=== PATIENT | female | born 1950 | race Caucasian/White ===

== ENCOUNTER 2018-02-09 12:24 | Day surgery (SDC) | payer OTHER ==
[2018-02-09] MEDS ORDERED: NA CHLORIDE 0.9% 500 ML ONE (13:05)
[2018-02-09] MEDS ORDERED: BUPIVACAINE 0.25% PF 10 ML VIAL ONE (13:14)
[2018-02-09] MEDS ORDERED: LIDOCAINE 2% MPF 5 ML VIAL ONE (13:14)
[2018-02-09] MEDS ORDERED: CEFAZOLIN/SWI 1gm 1 GM/10 ML SYR ONE (13:15)
[2018-02-09] MEDS ORDERED: PHENYLEPHRINE 10% OPTH 5ML ONE (13:17)
[2018-02-09] MEDS: CYCLOPENTOLATE 1% OPTH 2 ML ONE ×2 (13:25→13:30)
[2018-02-09] MEDS ORDERED: EPINEPHRINE/PF 1 MG/ML AMP ONE (13:31)
[2018-02-09] MEDS ORDERED: BALANCED SALT IRRIG PLAIN 500 ML BTL IRR ONE (13:31)
[2018-02-09] MEDS ORDERED: MOXIFLOXACIN HCL 10 DROPS/ML **OR USE OPTH ONE (13:32)
[2018-02-09] MEDS ORDERED: TRYPAN BLUE 0.5 ML SYR OPTH ONE (13:32)
[2018-02-09] MEDS ORDERED: DUOVISC 1 KIT OPTH ONE (13:32)
[2018-02-09] MEDS ORDERED: LIDOCAINE 1% MPF 2 ML AMPULE ONE (13:57)
[2018-02-09] MEDS ORDERED: PROPOFOL 200 MG/20 ML VIAL IV ONE (13:57)
[2018-02-09] MEDS: TETRACAINE HCL 0.5% 2ML OPTH ONE ×2 (14:11→14:18)
--- NOTE | 2018-02-09 15:05 | P.BOP ---
Preoperative diagnosis: Nuclear sclerotic cataract and pseudoexfoliation OS Postoperative diagnosis: Same Primary procedure: Phacoemulsification with IOL OS Estimated blood loss: None Anesthesia: Local (Subtenon's infusion with anesthesia for cataract surgery) Complications: None Implants: ZCB00 +20.5 Transferred to: Other (Day surgery) Condition: Good
--- NOTE | 2018-02-10 01:14 | OP ---
Surgeon: Shruti Cervantes MD Anesthesiologist: 1. Nazia Santillan CRNA. 2. Galdino Mtz M.D. Preoperative Diagnosis: Nuclear sclerotic cataract and pseudoexfoliation, left eye. Operation Performed: Phacoemulsification with intraocular lens implant, left eye. Anesthesia: Per cataract surgery. Complications: None. Description Of Procedure: In day surgery, the patient was prepped with Betadine and draped. A conju nctival incision was made in the inferior nasal quadrant with Irena scissors. A sub-Tenon block c onsisting of a 1:1 mixture of 2% Xylocaine and 0.25% bupivacaine was placed through the conjunctival incision with a blunt cannula. A [place] balloon was placed over the eye and the patient was transferr ed to the operating room. In the operating room the patient was prepped and draped in the usual sterile fashion for ophthalmic surgery. A lid speculum was placed in the left eye. Two paracentesis sites were made superiorly and inferiorly in the limbal cornea. Viscoat was placed in the anterior chamber and a crescent blade wa s used to make a corneal groove and tunnel, and a keratome was used to enter the anterior chamber. P rovisc was placed in the anterior chamber and a 360 degree capsulotomy was performed with a cystitome . The lens was hydrodissected with BSS and rotated freely. The lens was removed with a stop and cho p technique. 22.64 Phaco CDE was used to remove the lens. Residual cortex was removed with the irri gation and aspiration. Provisc was placed in the capsular bag. A ZCB00 +20.5 lens was placed in the capsular bag without complications. Irrigation and aspiration was used to remove residual viscoelas tic. The paracentesis sites were hydrated with BSS. The wound and paracentesis sites were inspected and found to be watertight. Vigamox 0.07 cc was placed intracamerally at the end of the procedure. The eye was irrigated with balanced salt solution. The eye was patched with a soft cotton patch and [place] metal shield. The patient was returned to day surgery in good condition. Discharge Instructions: Ms. Clayton is discharged home in good condition and is to follow up with Dr. Cervantes in the morning. MARY ANN/DONAVAN Voice ID: [id number] Report ID: [id number]
== END 2018-02-09 15:34 | disposition home or self-care (01) ==
LOC: OR 12:24
PROVIDERS: ATTEND Ophthalmology Retina Specialist
PROC: 08RK3JZ Replacement of Left Lens with Synthetic Substitute, Percutaneous Approach (ICD-10-PCS; principal; 2018-02-09 12:15)
DX: H25.12 Age-related nuclear cataract, left eye (principal); H26.8 Other specified cataract; H40.053 Ocular hypertension, bilateral; E11.319 Type 2 diabetes mellitus with unspecified diabetic retinopathy without macular edema; I10 Essential (primary) hypertension; E78.00 Pure hypercholesterolemia, unspecified; J45.909 Unspecified asthma, uncomplicated; G47.33 Obstructive sleep apnea (adult) (pediatric); I25.10 Atherosclerotic heart disease of native coronary artery without angina pectoris; K21.9 Gastro-esophageal reflux disease without esophagitis; Z79.82 Long term (current) use of aspirin; Z95.5 Presence of coronary angioplasty implant and graft; Z83.511 Family history of glaucoma
CPT/HCPCS: 66984; 82962; J0171; J0690; J2001